=== PATIENT | male | born 1995 | race Caucasian/White ===

== ENCOUNTER 2019-05-29 09:23 | Emergency (ER) | payer OTHER, SELFPAY ==
[2019-05-29 09:25] VITALS: BP 143/72; PULSE 66; RESP 14; TEMP 36.3; O2SAT 99; BMI 28.8
--- NOTE | 2019-05-29 09:44 | RAD_ITS ---
STUDY: X-RAY - RIGHT HAND REASON FOR EXAM: Male, 23 years old. Trauma to the middle finger at the metacarpophalangeal joint. TECHNIQUE: History view(s) of the hand. COMPARISON: None. FINDINGS: Normal radiocarpal articulation. Normal distal radioulnar joint. Normal visualized carpal bones. Normal carpal articulations Normal carpometacarpal articulation of the thumb. Normal second through fifth carpometacarpal joints. Normal metacarpi. Normal metacarpophalangeal joint of the thumb. Normal interphalangeal joint of the thumb. Normal proximal and distal phalanges of the thumb. Normal metacarpophalangeal joints of the second through fifth fingers. Normal proximal and distal interphalangeal joints of the second through fifth fingers. Normal phalanges of the second through fifth fingers. Soft tissue swelling. RAD/Hand Min 3 Views IMPRESSION: Soft tissue swelling. Electronically Signed: Bobby Kingston, at 10:52 EDT , Service support ,
--- NOTE | 2019-05-29 09:50 | ED.DCSUM_ITS ---
- ER Visit Summary Date of Service: 05/29/19 Chief Complaint: Right hand injury at the long finger MCP History of Present Illness: The patient is a 23 M no seen in the past medical or surgical history. He thinks his last tetanus shot was around 8 years ago. Patient is right-hand dominant. He was doing work today. When his hand struck a metallic clip that was driven in the cement. Causing a laceration to his right long finger at the dorsum at the MCP. He has decreased extension. He denies any other injuries. Physical Examination: Distress vital signs stable afebrile. HEENT exam unremarkable. Lungs are clear. Heart regular rhythm. Abdomen is soft. Moving all 4 extremities. Specifically the right hand is a V shaped laceration over the dorsum right hand at the MCP joint of the right long finger. He has decreased extension of the right long finger and has trouble extending against resistance. He also states he has decreased sensation. He has normal cap refill. There is no gross bony deformity. Other digits of the right hand and thumb are unremarkable, nontender. He has normal range of motion of the other digits. Test Results: Right hand x-ray 2 views shows no acute abnormality. No fracture. Soft tissue swelling. Read both by myself the radiologist. Emergency Department Course and Treatment: Tetanus updated. Procedure note: Right hand laceration at the dorsum of the right long finger at the MCP joint. V-shaped. Approximately 5 cm. Closed using 5 simple interrupted 4-0 Ethilon sutures. Proper hemostasis wound closure obtained. I did explore the wound prior to closure and there was no signs of an extensor tendon laceration. Laceration does not seem to have gone as deep as the tendon or the sheath. He is able to extend to just has difficulty against resistance. I did explain this to him if he does not have full normal extension when he gets his sutures out on need to reevaluate. Treatment Plan: Wound care. Return if any signs of infection. Ice and elevate. Follow-up if not normal extension is regained. Suture removal 10 days. Disposition: Discharged Impression: Right hand laceration repair 5 cm Worker's Comp. injury This note was generated with [employer] dictation software. It may contain incorrect words, spelling, and punctuation that were not noted in review of the chart prior to signing
[2019-05-29] MEDS: Diphth,Pertuss(Acell),Tet Vac 0.5 ML Vial IM (10:03)
--- NOTE | 2019-05-29 11:26 | ED.DEP ---
ED Disposition - Plan for ED Patient: Disposition: Home or Assisted Living Instructions: LACERATION, Hand Referrals: [facility]] - 10 Day for suture removal Additional Instructions: Ice and elevate. Clean daily. Apply antibiotic ointment daily. Return if any signs of infection. Follow-up if you do not get normal extension back with that finger. At this time there is no bony injury or fracture. And there is no obvious signs of extensor tendon laceration or rupture. The laceration did not go that deep.
== END 2019-05-29 12:17 | disposition home or self-care (01) ==
PROVIDERS: Emergency Provider Emergency Medicine
DX: S61.212A Laceration without foreign body of right middle finger without damage to nail, initial encounter (principal); W22.8XXA Striking against or struck by other objects, initial encounter; Y93.9 Activity, unspecified; Y92.9 Unspecified place or not applicable; Z72.0 Tobacco use
CPT/HCPCS: 12002; 73130; 90471; 90715; 99284